=== PATIENT | male | born 1990 | race Caucasian/White ===

== ENCOUNTER 2023-02-11 12:20 | Emergency (ER) | payer OTHER ==
[~2023-02-11] VITALS: Ht 185.5 cm; Wt 95.3 kg
[2023-02-11 12:23] VITALS: BP 127/89
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
== END 2023-02-11 13:21 | disposition home or self-care (01) ==
LOC: ER FS 12:23
DX: M54.2 Cervicalgia (principal); M25.511 Pain in right shoulder; G89.29 Other chronic pain; F17.210 Nicotine dependence, cigarettes, uncomplicated; W55.22XA Struck by cow, initial encounter; Y92.71 Barn as the place of occurrence of the external cause
CPT/HCPCS: 70450; 71045; 72125; 73030